=== PATIENT | male | born 1985 | race African-American/Black ===

== ENCOUNTER 2020-01-24 02:40 | Emergency (ER) | payer SELFPAY ==
[2020-01-24 02:55] VITALS: BP 113/59; PULSE 96; TEMP 97.9; BMI 22.8
[2020-01-24] MEDS ORDERED: MAG HYDROX/AL HYDROX/SIMETH 30 ML UNIT-DOSE CUP PO ONE (03:52)
--- NOTE | 2020-01-24 03:58 | PDOC ---
History of Present Illness - General Chief Complaint: Pain Stated Complaint: HOMELESS/HUNGRY Time Seen by Provider: 01/24/20 03:50 - History of Present Illness Initial Comments: 01/24/20 03:52 Mr. Gallagher is a 34 yo male w/ no significant pmh who presents for evaluation of non-specific abdominal discomfort. Patient reports he ate fast food for lunch and believes it is due to that. Patient also reports that he is homeless and wo uld like somewhere warm to stay for the evening. The patient denies chest pain, shortness of breath, headache and dizziness. Denies fever, chills, nausea, vomit, diarrhea and constipation. Denies dysuria, frequency, urgency and hematuria. Past History - Past Medical History Allergies/Adverse Reactions: Allergies Allergy/AdvReac Type Severity Reaction Status Date / Time No Known Allergies Allergy Verified 01/24/20 02:55 COPD: No - Psycho Social/Smoking Cessation Hx Smoking History: Never smoked Have you smoked in the past 12 months: No Information on smoking cessation initiated: No Hx Alcohol Use: No Drug/Substance Use Hx: No Review of Systems - Review of Systems Comments:: 01/24/20 03:55 GENERAL/CONSTITUTIONAL: No fever or chills. No weakness. HEAD, EYES, EARS, NOSE AND THROAT: No change in vision. No ear pain or discharge. No sore throat. CARDIOVASCULAR: No chest pain or shortness of breath RESPIRATORY: No cough, wheezing, or hemoptysis. GASTROINTESTINAL: +Non-specific abdominal pain earlier today. No nausea, vomiting, diarrhea or constipation. GENITOURINARY: No dysuria, frequency, or change in urination. MUSCULOSKELETAL: No joint or muscle swelling or pain. No neck or back pain. SKIN: No rash NEUROLOGIC: No headache, vertigo, loss of consciousness, or change in str ength/sensation. ENDOCRINE: No increased thirst. No abnormal weight change HEMATOLOGIC/LYMPHATIC: No anemia, easy bleeding, or history of blood clots. ALLERGIC/IMMUNOLOGIC: No hives or skin allergy. *Physical Exam - Vital Signs Last Vital Signs Temp Pulse Resp BP Pulse Ox 97.9 F 96 H 19 113/59 L 98 01/24/20 02:52 01/24/20 02:52 01/24/20 02:52 01/24/20 02:52 01/24/20 02:52 - Physical Exam 01/24/20 03:56 GENERAL: Awake, alert, and fully oriented, in no acute distress HEAD: No signs of trauma, normocephalic, atraumatic EYES: PERRLA, EOMI, sclera anicteric, conjunctiva clear ENT: Auricles normal inspection, hearing grossly normal, nares patent, oropharynx clear without exudates. Moist mucosa NECK: Normal ROM, supple, no lymphadenopathy, JVD, or masses LUNGS: No distress, speaks full sentences, clear to auscultation bilaterally HEART: Regular rate and rhythm, normal S1 and S2, no murmurs, rubs or gallops, peripheral pulses normal and equal bilaterally. ABDOMEN: Soft, nontender, normoactive bowel sounds. No guarding, no rebound. No masses EXTREMITIES: Normal inspection, Normal range of motion, no edema. No clubbing or cyanosis. NEUROLOGICAL: Cranial nerves II through XII grossly intact. Normal speech, normal gait, no focal sensorimotor deficits SKIN: Warm, Dry, normal turgor, no rashes or lesions noted. ED Treatment Course - LABORATORY CBC & Chemistry Diagram: 01/24/20 04:25 01/24/20 04:25 Medical Decision Making - Medical Decision Making 01/24/20 03:56 Patient is a 34 yo male w/ pmh as described who presents for evaluation of non-specific abdominal pain likely 2/2 diet. Patient well appearing upon exam w/ no acute symptoms. Will evaluate for acute process w/ labs and provide symptomatic relief w/ PO medication. Patient requesting food at this time. Additionally, patient requesting case management for chcf options - patient will stay in ER for eval in AM. 01/24/20 06:55 Patient signed out to Dr. Lunsford for further evaluation. Discharge - Discharge Information Problems reviewed: Yes Clinical Impression/Diagnosis: Abdominal pain Qualifiers: Abdominal location: unspecified location Qualified Code(s): R10.9 - Unspecified abdominal pain - Follow up/Referral - Patient Discharge Instructions Patient Printed Discharge Instructions: DI for Abdominal Pain-Adult Additional Instructions: You were evaluated today in the ER for your symptoms. We performed labs which were normal and your symptoms improved with medication. Please follow-up with primary care provider for further evaluation. Return to ER if any fever, chills, pain, or other concerning symptoms. - Post Discharge Activity
--- NOTE | 2020-01-24 04:16 | PDOC ---
Attending Attestation - Resident Resident Name: Varun Segura - ED Attending Attestation I have performed the following: I have examined & evaluated the patient, The case was reviewed & discussed with the resident, I agree w/resident's findings & plan - HPI HPI: 01/24/20 06:57 Pt states he is homeless. Comes for a warm place to stay. - Physicial Exam PE: 01/24/20 06:58 Normal exam - Medical Decision Making 01/24/20 06:58 Pt will be signed out to AM ER docs so that he can see case social work administrator
[2020-01-24] MEDS ORDERED: MAG HYDROX/AL HYDROX/SIMETH 30 ML UNIT-DOSE CUP ONE (04:33)
[2020-01-24 04:53] LABS: BASO % 0.8 % (0-2.0); EOS % 1.2 % (0-4.5); HEMATOCRIT 39.2 % (35.4-49); HEMOGLOBIN 14.1 GM/dL (11.7-16.9); LYMPH % 25.7 % (8-40); MCH 28.9 pg (25.7-33.7); MCHC 35.9 g/dl (32.0-35.9); MEAN CELL VOLUME 80.5 fl (80-96); MEAN PLT VOLUME 9.9 fl (7.5-11.1); MONO % 11.2 % (3.8-10.2); NEUT % 61.1 % (42.8-82.8); PLATELET COUNT 262 K/MM3 (134-434); RBC 4.88 M/mm3 (4.00-5.60); RDW 15.4 % (11.9-15.9); WHITE BLOOD COUNT 9.7 K/mm3 (4.0-10.0)
[2020-01-24 05:20] LABS: ALBUMIN 3.9 g/dl (3.4-5.0); BILIRUBIN,TOTAL 1.3 mg/dL (0.2-1); BLOOD UREA NITROGEN 29.1 mg/dL (7-18); CALCIUM 9.1 mg/dL (8.5-10.1); CREATININE 0.8 mg/dL (0.55-1.3); POTASSIUM 3.9 mmol/L (3.5-5.1); TOT PROT 6.9 g/dl (6.4-8.2)
--- NOTE | 2020-01-24 08:22 | PDOC ---
*Physical Exam - Vital Signs Last Vital Signs Temp Pulse Resp BP Pulse Ox 97.9 F 96 H 19 113/59 L 98 01/24/20 02:52 01/24/20 02:52 01/24/20 02:52 01/24/20 02:52 01/24/20 02:52 ED Treatment Course - LABORATORY CBC & Chemistry Diagram: 01/24/20 04:25 01/24/20 04:25 - ADDITIONAL ORDERS Additional order review: Laboratory Results 01/24/20 04:25 Sodium 135 L Potassium 3.9 Chloride 101 Carbon Dioxide 25 Anion Gap 9 BUN 29.1 H Creatinine 0.8 Est GFR (CKD-EPI)AfAm 135.08 Est GFR (CKD-EPI)NonAf 116.55 Random Glucose 95 Calcium 9.1 Total Bilirubin 1.3 H AST 70 H ALT 54 Alkaline Phosphatase 83 Total Protein 6.9 Albumin 3.9 01/24/20 04:25 RBC 4.88 MCV 80.5 MCHC 35.9 RDW 15.4 MPV 9.9 Neutrophils % 61.1 Lymphocytes % 25.7 Monocytes % 11.2 H Eosinophils % 1.2 Basophils % 0.8 - Medications Given in the ED: ED Medications Discontinued Medications Generic Name Dose Route Start Last Admin Trade Name Freq PRN Reason Stop Dose Admin Al Hydroxide/Mg Hydroxide 30 ml 01/24/20 03:52 01/24/20 04:38 Mylanta Oral Suspension - PO 01/24/20 03:53 30 ml ONCE ONE Administration Medical Decision Making - Medical Decision Making 01/24/20 08:[address] Segura (PGY-3) and Dr. Linton (Attending) 34 y/o undomiciled male here for pain. Labs unremarkable Medically cleared, awaiting SW 01/24/20 08:28 Patient assessed in Vertical, well appearing. No active medical complaints Given crackers and juice 01/24/20 09:14 Case d/w Diandra- will evaluate patient in ED 01/24/20 10:08 Jazmyn saw patient in ED, patient given list of homeless shelters and [employer]. Discharged with return precautions. Discharge - Discharge Information Problems reviewed: Yes Clinical Impression/Diagnosis: Abdominal pain Qualifiers: Abdominal location: unspecified location Qualified Code(s): R10.9 - Unspecified abdominal pain Condition: Improved Disposition: HOME - Admission No - Follow up/Referral - Patient Discharge Instructions Patient Printed Discharge Instructions: DI for Abdominal Pain-Adult Additional Instructions: You were evaluated today in the ER for your symptoms. We performed labs which we re normal and your symptoms improved with medication. Please follow-up with primary care provider for further evaluation. Return to ER if any fever, chills, pain, or other concerning symptoms. - Post Discharge Activity
== END 2020-01-24 10:29 | disposition home or self-care (01) ==
LOC: JER 02:40
DX: R10.9 Unspecified abdominal pain (principal); Z59.0 Homelessness
CPT/HCPCS: 36415; 80053; 85025; 99283-25

== ENCOUNTER 2020-01-24 21:26 | Emergency (ER) | payer SELFPAY ==
[2020-01-24 22:08] VITALS: TEMP 98.1; BMI 22.8
[2020-01-25] MEDS ORDERED: IBUPROFEN 600 MG TABLET (FP) PO ONE ×2 (00:16→00:20)
--- NOTE | 2020-01-25 00:16 | PDOC ---
History of Present Illness - General Chief Complaint: Pain Stated Complaint: FOOT PAIN Time Seen by Provider: 01/24/20 23:54 History Source: Patient - History of Present Illness Initial Comments: 01/25/20 00:49 34-year-old male complaining of left foot and ankle pain and swelling. Patient reports that he has been homeless for the last 2 to 3 months. During this time he was [place] for walking [place]. Patient reports that he was [facility] from [facility] this week and was given a ticket to come back to [place]. Patient reports that he is originally from [facility] and is unable to locate his family. patient reports that he has been walking around throughout [facility] and ended up in [place]. Patient was seen yesterday morning for abdominal pain. Patient denies any abdominal pain at this time. Requesting to stay in the hospital for 1 month to "allow the foot to heal "patient reports that 2 months ago while he was walking he twisted his ankle. denies HI/ SI/ HAllucination no pmhx Past History - Past Medical History Allergies/Adverse Reactions: Allergies Allergy/AdvReac Type Severity Reaction Status Date / Time No Known Allergies Allergy Verified 01/24/20 22:04 Home Medications: Ambulatory Orders NK [No Known Home Medication] 01/25/20 COPD: No Other medical history: DENIES - Immunization History Immunization Up to Date: No - Psycho Social/Smoking Cessation Hx Smoking History: Never smoked Have you smoked in the past 12 months: No Hx Alcohol Use: No Drug/Substance Use Hx: No Review of Systems - Review of Systems Able to Perform ROS?: Yes Is the patient limited Chinese proficient: No Psychiatric: No: Anxiety, Depression, Frequent Crying, Stressors, Sleep Pattern Change, Emotional Problems, Mood Swings, Change in Appetite, Other *Physical Exam - Vital Signs Last Vital Signs Temp Pulse Resp BP Pulse Ox 98.1 F 69 20 112/56 L 100 01/24/20 22:05 01/24/20 22:05 01/24/20 22:05 01/24/20 22:05 01/24/20 22:05 - Physical Exam General Appearance: Yes: Appropriately Dressed Respiratory/Chest: positive: Lungs Clear, Normal Breath Sounds Extremity: positive: Other (left ankle swelling, full rom. ) Integumentary: positive: Normal Color, Dry, Warm Neurologic: positive: Fully Oriented, Alert ED Progress Note - Progress Note Progress Note: 01/25/20 01:18 A: left ankle pain P: xray: no acute fracture.. will give an ankle brace Medical Decision Making - Medical Decision Making 01/25/20 01:[address] stuart. plan to d/c and have social work eval for nursing home information. patient is currently undomiciled. Discharge - Discharge Information Problems reviewed: Yes Clinical Impression/Diagnosis: Ankle sprain Qualifiers: Encounter type: initial encounter Involved ligament of ankle: unspecified ligament Laterality: left Qualified Code(s): S93.402A - Sprain of unspecified ligament of left ankle, initial encounter Disposition: HOME - Follow up/Referral Referrals: Robert Ferreira MD [Staff Physician] - - Patient Discharge Instructions Patient Printed Discharge Instructions: Ankle Sprain Additional Instructions: elevate your legs. keep ankle stirrup on. follow up with social in the morning. - Post Discharge Activity
[2020-01-25 04:52] VITALS: BP 110/63; PULSE 71
== END 2020-01-25 10:46 | disposition home or self-care (01) ==
LOC: JER 21:26
PROC: 2W3RXYZ Immobilization of Left Lower Leg using Other Device (ICD-10-PCS; principal; 2020-01-24)
DX: S93.402A Sprain of unspecified ligament of left ankle, initial encounter (principal); X50.0XXA Overexertion from strenuous movement or load, initial encounter; Y93.01 Activity, walking, marching and hiking; Y99.8 Other external cause status; Z59.0 Homelessness; Y92.414 Local residential or business street as the place of occurrence of the external cause
CPT/HCPCS: 73610-TC-LT-FY; 73630-TC-LT; 99283-25